=== PATIENT | male | born 1975 | race Caucasian/White ===

== ENCOUNTER → 2019-03-12 09:06 | Outpatient (CLI) | payer MEDICAID ==
--- NOTE | 2019-03-15 11:14 | ST ---
PATIENT:WENDY ORTIZ MEDICAL RECORD: [id number] SEX: M LOCATION:[facility] ORDER #: ADMISSION DATE: 03/12/19 AGE OF PATIENT: 43 REFERRING PHYSICIAN: INTERPRETING PHYSICIAN: NACHO SHABAZZ MD DATE OF SERVICE: 03/13/2019 PROCEDURE: Nuclear stress test. INDICATION: Angina, shortness of breath, hypertension, obesity. TECHNIQUE: He was exercised on standard Lexiscan protocol with 33 mCi of sestamibi injected at peak stress, 11 mCi used previously for rest images. FINDINGS: Gated SPECT reveals preserved ejection fraction at 65% with good wall motioning and thickening and brightening throughout all segments. SPECT imaging Cardiolite was used as myocardial perfusion agent. There is a fixed perfusion defect inferiorly. This is most likely diaphragmatic attenuation secondary to his obesity, it actually improves with stress. OVERALL IMPRESSION: This is a minimally abnormal nuclear stress test only showing a fixed perfusion defect inferiorly and most likely diaphragmatic attenuation, improvement with this defect with stress. No evidence of reversible ischemia. Preserved ejection fraction. Continue medical management of the coronary artery disease and cardiac risk factors. TRANSINT:[id number] Voice Confirmation ID: [id number] DOCUMENT ID: [id number] NACHO SHABAZZ MD at 1114 CC: [id number] DICTATION DATE: 03/13/19 1003 CHIEF PSYCHOLOGIST: 03/13/19 1022 DEP CLI 03/12/19 [id number] [place] [address]
== END | disposition home or self-care (01) ==
LOC: D.HCCARDIO 09:06
PROVIDERS: ATTEND Internal Medicine Interventional Cardiology
DX: I20.9 Angina pectoris, unspecified (principal)